=== PATIENT | female | born 1965 | race Caucasian/White ===

== ENCOUNTER 2018-08-15 13:18 | Emergency (ER) | payer OTHER ==
[2018-08-15 13:24] VITALS: BP 137/75; PULSE 102; RESP 18
[2018-08-15 13:45] VITALS: TEMP 98.4
--- NOTE | 2018-08-15 14:20 | ED ---
General Adult HPI - General Chief complaint: Psychiatric Symptoms Stated complaint: [facility] shahnaz petitioned Time Seen by Provider: 08/15/18 13:20 Source: police, RN notes reviewed Mode of arrival: ambulatory Limitations: no limitations - History of Present Illness Initial comments: This is a 51-year-old female presents emergency Department in police custody. [facility] was [facility] the [facility] because she was caught drunk driving. Patient got the chills started talking about killing herself and told the [facility] worker there that she was given leave at some point when she got sober and kill herself. Patient told me that she wanted to find some heroin and she was going to inject herself with heroin so she would . Patient does admit to drinking. Patient states she is not a daily drinker. Patient states she's never does any drugs. Patient states she has attempted suicide twice in the past one and a herself once with an overdose. Patient states she has no physical complaints today. Patient denies any headache patient denies numbness weakness. Patient denies any chest pain difficulty breathing first breath per patient denies any abdominal pain patient denies nausea vomiting diarrhea. Patient denies any recent injury or or fall - Related Data Home Medications Medication Instructions Recorded Confirmed HYDROcodone/APAP 10-325MG [[place] 1 tab PO TID PRN 08/15/18 08/15/18 10-325] Allergies Allergy/AdvReac Type Severity Reaction Status Date / Time No Known Allergies Allergy Verified 08/15/18 13:54 Review of Systems ROS Statement: Those systems with pertinent positive or pertinent negative responses have been documented in the HPI. ROS Other: All systems not noted in ROS Statement are negative. Past Medical History Past Medical History: Unable to Obtain History of Any Multi-Drug Resistant Organisms: Unobtainable Past Surgical History: Unable to Obtain Past Psychological History: Unable to Obtain Smoking Status: Unknown if ever smoked Past Alcohol Use History: Unable to Obtain Past Drug Use History: Unable to Obtain General Exam - General Exam Comments Initial Comments: GENERAL: Patient is well-developed and well-nourished. Patient is nontoxic and well- hydrated and is in no acute distress. Patient appears intoxicated ENT: Neck is soft and supple. No significant lymphadenopathy is noted. Oropharynx is clear. Moist mucous membranes. Neck has full range of motion without eliciting any pain. EYES: The sclera were anicteric and conjunctiva were pink and moist. Extraocular movements were intact and pupils were equal round and reactive to light. Eyelids were unremarkable. PULMONARY: Unlabored respirations. Good breath sounds bilaterally. No audible rales rhonchi or wheezing was noted. CARDIOVASCULAR: There is a regular rate and rhythm without any murmurs gallops or rubs. ABDOMEN: Soft and nontender with normal bowel sounds. No palpable organomegaly was noted. There is no palpable pulsatile mass. SKIN: Skin is clear with no lesions or rashes and otherwise unremarkable. NEUROLOGIC: Patient is alert and oriented x3. Cranial nerves II through XII are grossly intact. Motor and sensory are also intact. Normal speech, volume and content. Symmetrical smile. MUSCULOSKELETAL: Normal extremities with adequate strength and full range of motion. LYMPHATICS: No significant lymphadenopathy is noted PSYCHIATRIC: Patient states she is suicidal and wants to kill herself and it some point she will be released from this hospital and she will kill herself. Limitations: no limitations Course Vital Signs 08/15/18 08/15/18 13:20 13:44 Temperature 98.4 F Pulse Rate 102 H Respiratory 18 Rate Blood Pressure 137/75 O2 Sat by Pulse 98 Oximetry Medical Decision Making - Medical Decision Making I will back into reevaluate the patient after she was sober she denied being suicidal currently she states she'll go home with a friend who she feels safe with. Patient states she will follow-up per Alejandra's directions from EPS. Patient states she will also seek help for her drinking. - Lab Data Lab Results 08/15/18 Range/Units 14:19 Urine Opiates Screen Not Detected (NotDetected) Ur Oxycodone Screen Not Detected (NotDetected) Urine Methadone Screen Not Detected (NotDetected) Ur Propoxyphene Screen Not Detected (NotDetected) Ur Barbiturates Screen Not Detected (NotDetected) U Tricyclic Antidepress Not Detected (NotDetected) Ur Phencyclidine Scrn Not Detected (NotDetected) Ur Amphetamines Screen Not Detected (NotDetected) U Methamphetamines Scrn Not Detected (NotDetected) U Benzodiazepines Scrn Not Detected (NotDetected) Urine Cocaine Screen Not Detected (NotDetected) U Marijuana (THC) Screen Not Detected (NotDetected) Disposition Clinical Impression: Alcohol intoxication, Situational depression Disposition: HOME SELF-CARE Condition: Good Instructions: Depression (ED) Is patient prescribed a controlled substance at d/c from ED?: No Referrals: None,Stated [Primary Care Provider] - 1-2 days Time of Disposition: 20:04
[2018-08-15 14:34] LABS: Amphetamine Screen,Urine Not Detected (NotDetected); Barbiturate Screen,Urine Not Detected (NotDetected); Benzodiazepines Screen,Urine Not Detected (NotDetected); Cocaine Screen,Urine Not Detected (NotDetected); Methadone Screen, Urine Not Detected (NotDetected); Opiate Screen,Urine Not Detected (NotDetected); Oxycodone Screen, Urine Not Detected (NotDetected); Phencyclidine Screen,Urine Not Detected (NotDetected); Tricyclic Antidepressant,Urine Not Detected (NotDetected); Urn Cannabinoid Scrn Not Detected (NotDetected)
[2018-08-15] MEDS ORDERED: ACETAMINOPHEN TAB 500 MG TAB PO STA (20:24)
== END 2018-08-15 20:50 | disposition home or self-care (01) ==
LOC: EC 13:18
DX: F10.129 Alcohol abuse with intoxication, unspecified (principal); F43.21 Adjustment disorder with depressed mood
CPT/HCPCS: 80306; 99285

== ENCOUNTER → 2020-05-01 | Outpatient (CLI) | payer OTHER ==
--- NOTE | 2020-05-01 11:59 | ECHOF ---
Referral Reason:R00.2 Palpitations, R55 syncope MEASUREMENTS -------- HEIGHT: 167.6 cm WEIGHT: 73.9 kg BP: RVIDd: 3.7 cm (< 3.3) IVSd: 1.0 cm (0.6 - 1.1) LVIDd: 4.3 cm (3.9 - 5.3) LVPWd: 1.3 cm (0.6 - 1.1) IVSs: 1.4 cm LVIDs: 2.3 cm LVPWs: 1.8 cm LAESV Index (A-L): 23.49 ml/m Ao Diam: 2.8 cm (2.0 - 3.7) AV Cusp: 1.7 cm (1.5 - 2.6) MV EXCURSION: 20.651 mm (> 18.000) MV EF SLOPE: 123 mm/s (70 - 150) EPSS: 0.4 cm MV E Navjot: 0.67 m/s MV DecT: 173 ms MV A Navjot: 0.70 m/s MV E/A Ratio: 0.96 RAP: 5.00 mmHg RVSP: 23.93 mmHg FINDINGS -------- Sinus rhythm. This was a technically adequate study. The left ventricular size is normal. There is mild concentric left ventricular hypertrophy. Overa ll left ventricular systolic function is normal with, an EF between 55 - 60 %. The diastolic fillin g pattern is normal for the age of the patient 6.77. The right ventricle is mild to moderately enlarged. Normal LA size by volume 22+/-6 ml/m2. The right atrium is mildly enlarged. Interatrial and interventricular septum intact. The aortic valve is trileaflet and appears structurally normal. Trace amount of aortic regurgitatio n. There is no evidence of aortic stenosis. The mitral valve is normal. No mitral regurgitation. The tricuspid valve appears structurally normal. Trace tricuspid regurgitation present. There is no evidence of pulmonary hypertension. The right ventricular systolic pressure, as measured by Dopp ler, is 23.93mmHg. There is no pulmonic regurgitation present. The aortic root size is normal. The inferior vena cava is mildly dilated. There is no pericardial effusion. CONCLUSIONS -------- 1. There is mild concentric left ventricular hypertrophy. 2. Overall left ventricular systolic function is normal with, an EF between 55 - 60 %. 3. The diastolic filling pattern is normal for the age of the patient 6.77 4. The right ventricle is mild to moderately enlarged. 5. Normal LA size by volume 22+/-6 ml/m2. 6. The right atrium is mildly enlarged. 7. The aortic valve is trileaflet and appears structurally normal. 8. Trace amount of aortic regurgitation. 9. The mitral valve is normal. 10. Trace tricuspid regurgitation present. 11. The inferior vena cava is mildly dilated. 12. There is no pericardial effusion. RANCH RIDER: Belinda Gallego RDCS
--- NOTE | 2020-05-06 14:11 | HM ---
HOLTER MONITOR REPORT HOLTER MONITOR: Patient was monitored for 48 hours. The baseline rhythm is a sinus mechanism with normal conduction. The average rate 74 beats per minute, minimum 44, maximum 117 beats per minute. Ventricular ectopic activity was present in form of rare single PVCs. Supraventricular ectopic activity was present in form of rare single PACs. Symptoms of short of breath and symptoms of lightheaded did not correlate as well as symptoms of feel faint and increased heart rate did not correlate with any dysrhythmia. CONCLUSION: 1. Sinus mechanism baseline rhythm. 2. Rare ventricular ectopic activity. 3. Rare supraventricular ectopic activity which short bursts of nonsustained SVT. 4. Symptoms did not correlate with any dysrhythmia. MMODL / IJN: [id number] /
== END | disposition home or self-care (01) ==
LOC: RADECHMAIN 11:08
PROVIDERS: ATTEND Family Medicine
DX: I07.1 Rheumatic tricuspid insufficiency (principal); I87.8 Other specified disorders of veins; R00.2 Palpitations; R55 Syncope and collapse
CPT/HCPCS: 93225; 93226; 93306

== ENCOUNTER → 2020-05-07 | Outpatient (CLI) | payer OTHER ==
--- NOTE | 2020-05-07 10:40 | CT ---
EXAMINATION TYPE: CT soft tissue neck w con DATE OF EXAM: 05/07/2020 8:47 AM COMPARISON: None HISTORY: Neck mass CT DLP: 356.0 mGycm Automated exposure control for dose reduction was used. CONTRAST: CT scan of the neck is performed following with IV Contrast, patient injected with 100 mL of Isovue 3 00. Axial images are obtained, coronal and sagittal reformatted images are reviewed. FINDINGS: The patient's right submandibular mass was marked with an overlying BB Airway: No gross abnormality seen. Parotid/submandibular glands: No gross abnormality seen. A BB is overlying the right submandibular g land Carotid/Vascular Structures: Unremarkable Osseous Structures: Within normal limits Other: Low dense focus present within the right thyroid gland2 IMPRESSION: No discrete mass at the level of patient's submandibular gland the site of patient's cli nical abnormality
== END | disposition home or self-care (01) ==
LOC: RADCTMAIN 08:15
PROVIDERS: ATTEND Family Medicine
DX: R22.1 Localized swelling, mass and lump, neck (principal)
CPT/HCPCS: 70491; Q9967

== ENCOUNTER 2021-04-29 | Emergency (ER) | payer OTHER | END 2021-04-29 17:55 | disposition home or self-care (01) | CPT/HCPCS: 36415; 70450; 70496; 70498; 71046; 80053; 84484; 85025; 85610; 85730; 93005; 96360; 96361; 99284 ==